=== PATIENT | female | born 1980 | race Caucasian/White ===

== ENCOUNTER 2024-09-28 13:41 | Emergency (ER) | payer MEDICAID, SELFPAY ==
[2024-09-28 13:43] VITALS: BMI 28.1
[2024-09-28 14:51] VITALS: BP 133/80; PULSE 88; RESP 16; TEMP 36.4; O2SAT 97
--- NOTE | 2024-09-28 15:05 | XR_ITS ---
Examination: CT abdomen and pelvis without contrast. Coronal 3-D reconstructions. Sagittal 2-D reconstructions. Date and time of exam:September 28, 2024 1621 hrs. Comparison: August 19, 2018 Indications: Left flank pain beginning 2 weeks ago, history kidney stones CTDI: vol (mGy): 15.1 DLP: (mGycm): 746 Technique: Axial images of the abdomen have been obtained, 3 mm slice thickness Intravenous contrast material has not been administered. Low dose protocols were performed. One or more of the following dose reduction techniques were used; automated exposure control, adjustment of the mA and/or KV according to patient size, use of iterative reconstruction technique. Findings: No focal liver or splenic lesions No gallstones No pancreatic or adrenal mass Moderate bilateral renal parenchymal scar formation Bilateral 1 mm renal calculi, no hydronephrosis or ureteral calculi Normal appendix No bowel obstruction or diverticulitis Anteverted uterus No adnexal mass No bladder mass or bladder calculi Mild osteopenia Impression: Tiny bilateral nonobstructing renal calculi, no hydronephrosis or ureteral calculi Moderate bilateral renal parenchymal scar formation Normal appendix No bladder mass or bladder calculi
--- NOTE | 2024-09-28 15:06 | PD.EDRME ---
Rapid Medical Screening Exam RME Arrival date/time: 09/28/24 13:41 44-year-old female presents emergency department complaint of left flank pain and dysuria. Chief Complaint: Back Pain/Injury Time Seen by Provider: 09/28/24 15:00 Vital signs: Vital Signs Temperature 97.6 F 09/28/24 14:51 Pulse Rate 88 09/28/24 14:51 Respiratory Rate 16 09/28/24 14:51 Blood Pressure 133/80 H 09/28/24 14:51 Pulse Oximetry (%) 97 09/28/24 14:51 Oxygen Delivery Method Room Air 09/28/24 14:51 Vital signs reviewed by provider: Yes
[2024-09-28 15:27] LABS: Collection Type, Urine Clean Catch
[2024-09-28 15:36] LABS: Basophils % (Auto) 0 % (0-2.5); Eosinophils # (Auto) 0.2 Thou/mm3 (0.0-0.5); Eosinophils % (Auto) 2 % (0-10); Hematocrit 37.7 % (36.0-46.0); Hemoglobin 12.6 g/dL (12.0-16.0); Immature Granulocytes % (Auto) 0 % (0-0); Immature Granulocytes Auto 0.02 Thou/mm3 (0.00-0.00); Lymphocytes # (Auto) 2.9 Thou/mm3 (1.0-4.8); Lymphocytes % (Auto) 34 % (10-50); Mean Corpuscular HGB Conc 33.4 g/dl (31.0-37.0); Mean Corpuscular Hemoglobin 31.7 pg (25.0-35.0); Mean Corpuscular Volume 95 fL (80-100); Monocytes # (Auto) 0.4 Thou/mm3 (0.0-0.8); Monocytes % (Auto) 4 % (0-12); Neutrophils % (Auto) 59 % (37-80); Nucleated Red Blood Cell % 0 /100 WBC (0); Platelet Count 289 Thou/mm3 (140-440); RDW Standard Deviation 44.2 fL (36.4-46.3); Red Blood Count 3.98 Miln/mm3 (4.00-5.20); White Blood Count 8.6 Thou/mm3 (3.6-11.0)
[2024-09-28 15:42] LABS: Bilirubin,Urine Negative (Negative); Blood,Urine Negative (Negative); Clarity,Urine Clear (Clear/Hazy); Color,Urine Yellow (Lt Yel-Yel); Culture Indicated,Urine Not Indicated; Glucose, Urine Negative (Negative); Ketones,Urine Negative (Negative); Leukocyte Esterase,Urine Negative (Negative); Nitrite,Urine Negative (Negative); Protein,Urine Trace (Neg - Trace); RBC,Urine 1 /hpf (0-3); Specific Gravity,Urine 1.022 (1.001-1.035); Squamous Epithelial Cell,Urine 7 /hpf (0-5); Urobilinogen,Urine Negative mg/dL (0.0-1.0); WBC,Urine 2 /hpf (0-5)
[2024-09-28] MEDS: KETOROLAC INJ 60 MG/2 ML VIAL 30 MG IM (15:50)
[2024-09-28 15:51] LABS: Alanine Aminotransferase 13 U/L (10-49); Albumin, Serum 4.9 gm/dL (3.5-5.0); Alkaline Phosphatase 115 U/L (46-116); Anion Gap 5 (7-16); Aspartate Amino Transferase 11 U/L (0-34); BUN/Creatinine Ratio 11 Ratio (12-20); Bilirubin,Total 0.2 mg/dL (0.3-1.2); Blood Urea Nitrogen 8 mg/dL (9-23); Calcium 9.7 mg/dL (8.3-10.6); Calcium (Corrected) 9.7 mg/dL (8.5-10.1); Carbon Dioxide 27.4 mMol/L (20.0-31.0); Chloride 107 mMol/L (98-107); Creatinine (Component) 0.7 mg/dL (0.6-1.3); Estimated Creatinine Clearance 115.1 mL/min (>60); Globulin 2.5 gm/dL (2.3-3.5); Glucose 95 mg/dL (74-106); Lipase 41 U/L (12-53); Osmolality,Calculated 275 (275-295); Potassium 3.9 mMol/L (3.4-5.1); Sodium 139 mMol/L (136-145); Total Protein 7.4 gm/dL (5.7-8.2); eGFR > 60 See Note
[2024-09-28 15:54] LABS: HCG,Qualitative Serum Negative
[2024-09-28 16:42] VITALS: BP 149/83; PULSE 90; RESP 18; TEMP 36.8; O2SAT 97
--- NOTE | 2024-09-28 19:57 | EDNOTE_ITS ---
ED Back Injury Pain RME/HPI General Chief Complaint: Back Pain/Injury Stated Complaint: LEFT BACK PAIN X3 WEEKS Time Seen by Provider: 09/28/24 15:00 Arrival date/time: 09/28/24 13:41 RME / HPI RME / HPI Narrative: 09/28/24 13:41 44-year-old female presents emergency department complaint of left flank pain and dysuria. ------ Dr. Mckeon?s Main ED Evaluation: 44yo female presents to the ED for a chief complaint of left flank pain x 3 weeks. Patient describes her pain as sharp and burning in nature, reporting it is intermittent. Patient reports associated abdominal pain. She denies any fever, chills, UTI symptoms, N/V or any other associated symptoms. Denies any history of similar symptoms. Patient states her pain has improved since receiving pain medication here in the ED. Patient states she has ibuprofen at home. Related Data Previous Rx's ?Medication ?Instructions ?Recorded levetiracetam 500 mg tablet 500 mg PO BID #60 tabs 06/21/23 (Keppra) cephalexin 500 mg capsule 500 mg PO TID #21 caps 08/21/23 prednisone 50 mg tablet 50 mg PO QDAY #5 tabs 12/24/23 Allergies Allergy/AdvReac Type Severity Reaction Status Date / Time latex Allergy Intermediate Rash Verified 09/28/24 13:42 buspirone [From BuSpar] Allergy Hives Verified 09/28/24 13:42 hydroxyzine [From Vistaril] Allergy Verified 09/28/24 13:42 walnut Allergy Swelling Verified 09/28/24 13:42 of Lip/Tongue/Throat Review of Systems Review of Systems Systems Reviewed: All systems reviewed, normal except as documented Narrative Review of Systems: Gen: No fever, no chills, no weight loss EYES: No discharge, no visual changes, no pain HEENT: No ear pain, no congestion, no sore throat PULM: No shortness of breath, no cough, no congestion CV: No chest pain, no dyspnea on exertion, no palpitations GI: No nausea, no vomiting, no diarrhea, + pain, no constipation : No frequency, no urgency, no dysuria Musc/skel: No joint pain, + back pain Skin: No rash. Warm and dry. Psyc: No hallucinations, no depression Heme/Lymph: No easy bleeding or bruising tendencies Neuro: No weakness, no headache Past Medical History Past Medical History CARDIAC: Negative Congestive Heart Failure RESPIRATORY: Negative Chronic Obstructive Pulmonary Disease (COPD) GENITOURINARY: Positive Kidney Stones; Negative Renal Disease ENDOCRINE: Negative Diabetes Mellitus Type 1 or Diabetes Mellitus Type 2 Social History SMOKING STATUS: Current every day smoker SUBSTANCE USE: does not use ED Exam Narrative Physical exam: GENERAL APPEARANCE: alert and oriented x 4, well-developed, well-nourished, no acute distress VITALS: All vitals were reviewed and the pulse ox is 97% on room air, which is normal according to my interpretation. HEENT: Normocephalic, atraumatic; pupils equal, round, reactive to light; EOMI; mucous membranes pink, moist; oropharynx clear NECK: Supple LUNGS: CTABL; no wheezes, no rales, no rhonchi HEART: Regular rate, regular rhythm; normal S1, S2; no murmurs ABDOMEN: non distended; normal BS; soft, no tenderness, no guarding, no rebound; no masses, no organomegaly, no hernia BACK: no CVA tenderness EXTREMITIES: atraumatic; no edema NEUROLOGIC: awake; alert and oriented x4; cranial nerves II-XII grossly intact; no focal sensory or motor deficits PSYCHIATRIC: appropriate mood and affect SKIN: warm, dry, normal color; no rashes Course Quality Measures none Orders Category Date Time Status CT abdomen pelvis wo con Stat Exams 09/28/24 15:05 Completed CBC Stat Lab 09/28/24 15:25 Completed CMP [Comprehensive Metabolic Panel] Stat Lab 09/28/24 15:25 Completed HCG,Qualitative Serum Stat Lab 09/28/24 15:25 Completed Lipase Stat Lab 09/28/24 15:25 Completed Urinalysis, C/S if Indicated Stat Lab 09/28/24 15:10 Completed Ketorolac Inj [Toradol Inj] Med 09/28/24 15:05 Discontinued 30 mg IM X1 ONE Vital Signs Vital signs: Vital Signs Temperature 97.6 F 09/28/24 14:51 Pulse Rate 88 09/28/24 14:51 Respiratory Rate 16 09/28/24 14:51 Blood Pressure 133/80 H 09/28/24 14:51 Pulse Oximetry (%) 97 09/28/24 14:51 Oxygen Delivery Method Room Air 12/28/24 14:51 Back Pain / Injury MDM Narrative MDM Narrative:: Scribe Attestation: 09/28/24 - Tarah Wilder am scribing for and in the presence of Dr. Mckeon. Patient data External records reviewed:: [facility] previous records (Per chart review, patient has no relevant previous ED visits.) Clinical information provided by:: patient Social determinants that could affect healthcare access:: none Patient has the following chronic illnesses:: none How is presenting disease/condition affected by chronic disease/condition?: no chronic disease Evaluation data The following diagnostics were reviewed and interpreted by me:: lab results and radiology exam(s) Lab and/or radiology exams considered but not ordered:: none Interpretation Summary: CBC is normal, CMP is normal, HCG is negative, UA is unremarkable, according to my interpretation. ---- [facility] Report Signed Patient: JOSH LLAMAS Record#: [id number] Birthdate: 1980 Age/Sex: 44 / F Location: [facility] Attending Dr: Ordering Physician: Lizzie KEITH)Miles Date of Service: 09/28/24 Procedure(s): CT abdomen pelvis wo con Accession Number(s): [id number] cc: Staci Ford; Georges Canada MD; Lizzie KEITH),Miles BOSS~ Examination: CT abdomen and pelvis without contrast. Coronal 3-D reconstructions. Sagittal 2-D reconstructions. Date and time of exam:September 28, 2024 1621 hrs. Comparison: August 19, 2018 Indications: Left flank pain beginning 2 weeks ago, history kidney stones CTDI: vol (mGy): 15.1 DLP: (mGycm): 746 Technique: Axial images of the abdomen have been obtained, 3 mm slice thickness Intravenous contrast material has not been administered. Low dose protocols were performed. One or more of the following dose reduction techniques were used; automated exposure control, adjustment of the mA and/or KV according to patient size, use of iterative reconstruction technique. Findings: No focal liver or splenic lesions No gallstones No pancreatic or adrenal mass Moderate bilateral renal parenchymal scar formation Bilateral 1 mm renal calculi, no hydronephrosis or ureteral calculi Normal appendix No bowel obstruction or diverticulitis Anteverted uterus No adnexal mass No bladder mass or bladder calculi Mild osteopenia Impression: Tiny bilateral nonobstructing renal calculi, no hydronephrosis or ureteral calculi Moderate bilateral renal parenchymal scar formation Normal appendix No bladder mass or bladder calculi Dictated By: Georges Canada MD Signed By: <Electronically signed by Georges Canada MD in OV> 09/28/24 1721 Medications / Prescriptions Medications or Prescriptions considered but not ordered:: none Medication administrations:: Medication Administration History Discontinued Medications Ketorolac Tromethamine (Ketorolac Inj 60 Mg/2 Ml Vial) 30 mg IM X1 ONE Stop: 09/28/24 15:06 Last Admin: 09/28/24 15:50 Dose: 30 mg Documented By: [facility] see above Consultations Consultation(s) initiated? (list below): No Diagnosis Differential diagnosis back pain/injury: renal colic, pyelonephritis and other (UTI, cystitis, musculoskeletal strain) Most likely diagnosis given after review of the tests above:: see below Admission Indicated Admission indicated?: not indicated Admission Request Was there a request for admission?: No Disposition Plan Disposition Plan: Discharge Discharge Attestation Discharge Attestation: The patient and all family members were given an opportunity to ask questions and understood the discharge instructions. Discharge instructions specifically effects, indications for sooner follow up or return to the emergency department, and the expected course of current diagnosis. Patient condition: Stable Discharge Plan Plan Patient Disposition: HOME (Self Care) Disposition Comment: Stable for discharge Patient condition on transfer: Stable Prescriptions/Referrals Prescriptions/Med Rec: No Action levetiracetam [Keppra] 500 mg tablet 500 mg PO BID Qty: 60 0RF prednisone 50 mg tablet 50 mg PO QDAY Qty: 5 0RF cephalexin 500 mg capsule 500 mg PO TID Qty: 21 0RF Referrals: Staci Ford PA-C [Primary Care Provider] - In 1 week Problem List Clinical Impression: Back pain Patient/Caregiver Discharge Instructions Discharge Activity: activity as tolerated Other Activity Instructions:: No lifting heavy objects, stooping or bending to pick things up. Education Materials: Back Safety: Bending, Back Safety: Lifting, Back Basics: A Healthy Spine, Back Exercises: Lower Back Rotation Additional Instructions: Please follow-up with your primary care doctor within the next several days. You should take Motrin 600 mg as well as 975 mg of acetaminophen and do this every 6 hours. You should do this for the next several days for pain. You should avoid carrying large objects, bending over to pick things up, stooping or bending. You should rest your back for the next several days. What ever it is that is causing the pain it can be seen on CT, blood work or urine tests. If you notice yourself worsening in any way please return to the ER right away and we will take care of you Print Language: Hungarian Stand Alone Forms: Whitney Award Info., Patient Portal Info Letter
== END 2024-09-28 20:25 | disposition home or self-care (01) ==
PROVIDERS: Emergency Provider Emergency Medicine; PCP Physician Assistant
DX: N20.0 Calculus of kidney (principal); F17.200 Nicotine dependence, unspecified, uncomplicated
CPT/HCPCS: 36415; 74176; 80053; 81001; 83690; 84703; 85025; 96372; 99284; J1885

== ENCOUNTER 2025-07-28 15:26 | Emergency (ER) | payer MEDICAID, SELFPAY ==
[2025-07-28 15:34] VITALS: BP 155/94; PULSE 77; RESP 18; TEMP 36.8; O2SAT 100
[2025-07-28 15:36] VITALS: BMI 29.0
--- NOTE | 2025-07-28 16:00 | XR_ITS ---
EXAMINATION: PA lateral chest 2 views TECHNIQUE: Upright PA lateral chest 2 views Date and time: July 28, 2025, 1521 hours INDICATIONS: Left-sided chest pain radiating to the left arm today. FINDINGS: Normal heart size Lungs are clear. The osseous tractors are intact IMPRESSION: No active disease
--- NOTE | 2025-07-28 16:00 | EKG_ITS ---
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
--- NOTE | 2025-07-28 16:00 | PD.EDRME ---
Rapid Medical Screening Exam E Arrival date/time: 07/28/25 15:26 44-year-old female with no known medical history presents to the emergency room with a chief complaint of left-sided sternal chest pain that radiates down her left arm causing numbness and tingling x 1 day I have greeted and performed a focused initial assessment of this patient. A comprehensive ED assessment and evaluation of the patient, analysis of all test results, and completion of the medical decision making process will be conducted by additional ED providers. Time Seen by Provider: 07/28/25 15:50 Vital signs: Vital Signs Temperature 98.3 F 07/28/25 15:34 Pulse Rate 77 07/28/25 15:34 Respiratory Rate 18 07/28/25 15:34 Blood Pressure 155/94 H 07/28/25 15:34 Pulse Oximetry (%) 100 07/28/25 15:34 Oxygen Delivery Method Room Air 07/28/25 15:34 Vital signs reviewed by provider: Yes Exam: Clear bilateral lung sounds Strong and regular rhythm, no gallops no murmurs no JVD GCS of 15 AO x 3 Clinical Impression: Costochondritis/chest pain/STEMI/NSTEMI
[2025-07-28 16:28] LABS: Collection Type, Urine Clean Catch
[2025-07-28 16:41] LABS: Amorphous Crystals,Urine Present (Absent); Amphetamine/Methamp Scrn,U Negative (Negative); Bacteria,Urine Rare; Barbiturate Screen,Urine Negative (Negative); Benzodiazepines Screen,Urine Negative (Negative); Benzoylecgonine Screen, Ur Negative (Negative); Bilirubin,Urine Negative (Negative); Blood,Urine 3+ (Negative); Clarity,Urine Clear (Clear/Hazy); Color,Urine Colorless (Lt Yel-Yel); Culture Indicated,Urine Not Indicated; Fentanyl Screen,Urine Negative (Negative); Glucose, Urine Negative (Negative); Ketones,Urine Negative (Negative); Leukocyte Esterase,Urine Negative (Negative); Nitrite,Urine Negative (Negative); Opiate Screen,Urine Negative (Negative); PH,Urine 6.5 (5.0-7.0); Protein,Urine Negative (Neg - Trace); RBC,Urine 7 /hpf (0-3); Specific Gravity,Urine 1.004 (1.001-1.035); Squamous Epithelial Cell,Urine 8 /hpf (0-5); THC Screen,Urine Negative (Negative); Urobilinogen,Urine Negative mg/dL (0.0-1.0); WBC,Urine 3 /hpf (0-5)
[2025-07-28 16:43] LABS: Basophils # (Auto) 0.0 Thou/mm3 (0.0-0.2); Basophils % (Auto) 0 % (0-2.5); Eosinophils # (Auto) 0.2 Thou/mm3 (0.0-0.5); Eosinophils % (Auto) 2 % (0-10); Hematocrit 36.6 % (36.0-46.0); Hemoglobin 12.1 g/dL (12.0-16.0); Immature Granulocytes Auto 0.03 Thou/mm3 (0.00-0.00); Lymphocytes # (Auto) 3.3 Thou/mm3 (1.0-4.8); Lymphocytes % (Auto) 35 % (10-50); Mean Corpuscular HGB Conc 33.1 g/dl (31.0-37.0); Mean Corpuscular Hemoglobin 30.7 pg (25.0-35.0); Mean Corpuscular Volume 93 fL (80-100); Monocytes # (Auto) 0.4 Thou/mm3 (0.0-0.8); Monocytes % (Auto) 4 % (0-12); Neutrophils # (Auto) 5.5 Thou/mm3 (1.8-7.7); Neutrophils % (Auto) 59 % (37-80); Nucleated Red Blood Cell # 0.00 Thou/mm3 (0.00-0.00); Nucleated Red Blood Cell % 0 /100 WBC (0); Platelet Count 267 Thou/mm3 (140-440); RDW Standard Deviation 43.8 fL (36.4-46.3); Red Blood Count 3.94 Miln/mm3 (4.00-5.20); White Blood Count 9.4 Thou/mm3 (3.6-11.0)
[2025-07-28 17:16] LABS: B-Type Natriuretic Peptide 35 pg/mL (0-100)
[2025-07-28 17:17] LABS: Alanine Aminotransferase 11 U/L (10-49); Albumin, Serum 4.8 gm/dL (3.5-5.0); Albumin/Globulin Ratio 2.2 (1.2-2.2); Alkaline Phosphatase 113 U/L (46-116); Anion Gap 8 (7-16); Aspartate Amino Transferase 17 U/L (0-34); BUN/Creatinine Ratio 9 Ratio (12-20); Bilirubin,Total 0.3 mg/dL (0.3-1.2); Blood Urea Nitrogen 6 mg/dL (9-23); Calcium 9.4 mg/dL (8.3-10.6); Calcium (Corrected) 9.4 mg/dL (8.5-10.1); Carbon Dioxide 25.1 mMol/L (20.0-31.0); Chloride 109 mMol/L (98-107); Creatinine (Component) 0.7 mg/dL (0.6-1.3); Estimated Creatinine Clearance 116.6 mL/min (>60); Globulin 2.2 gm/dL (2.3-3.5); Glucose 95 mg/dL (74-106); Magnesium 1.6 mg/dL (1.6-2.6); Osmolality,Calculated 280 (275-295); Potassium 4.0 mMol/L (3.4-5.1); Sodium 142 mMol/L (136-145); Total Protein 7.0 gm/dL (5.7-8.2); Troponin I < 0.002 ng/mL (0.0-0.045); eGFR > 60 See Note
[2025-07-28 17:19] LABS: INR 0.9 (0.9-1.3); Partial Thromboplastin Time 28.9 Seconds (22.0-36.0); Prothrombin Time 9.9 Seconds (9.0-12.2)
[2025-07-28 20:26] VITALS: BP 151/81; PULSE 75; RESP 15; TEMP 36.7; O2SAT 100
--- NOTE | 2025-07-28 20:30 | EDNOTE_ITS ---
ED General RME/HPI General Stated complaint: NUMBNESS Time Seen by Provider: 07/28/25 15:50 Arrival date/time: 07/28/25 15:26 CC: Numbness in the left side of the face and the left arm abrupt onset approximately 2 hours prior to arrival, denies any chest pain shortness of breath no prior history of similar events also complaining of numbness and tingling intermittently in both feet, but not in the legs. Patient denies fever chills chest pain shortness of breath or difficulty breathing. RME / HPI RME / HPI narrative: 07/28/25 15:26 44-year-old female with no known medical history presents to the emergency room with a chief complaint of left-sided sternal chest pain that radiates down her left arm causing numbness and tingling x 1 day I have greeted and performed a focused initial assessment of this patient. A comprehensive ED assessment and evaluation of the patient, analysis of all test results, and completion of the medical decision making process will be conducted by additional ED providers. Exam: Clear bilateral lung sounds Strong and regular rhythm, no gallops no murmurs no JVD GCS of 15 AO x 3 Impression: Costochondritis/chest pain/STEMI/NSTEMI Related Data Previous Rx's ?Medication ?Instructions ?Recorded levetiracetam 500 mg tablet 500 mg PO BID #60 tabs (Keppra) cephalexin 500 mg capsule 500 mg PO TID #21 caps 08/21 prednisone 50 mg tablet 50 mg PO QDAY #5 tabs Allergies Allergy/AdvReac Type Severity Reaction Status Date / Time almond Allergy Severe Swelling Verified 07/28/25 15:56 of Lip/Tongue/Throat buspirone (From BuSpar) Allergy Severe Hives Verified 07/28/25 15:56 cashew nut Allergy Severe Swelling Verified 07/28/25 15:56 of Lip/Tongue/Throat hydroxyzine (From Vistaril) Allergy Severe Swelling Verified 07/28/25 15:56 of Lip/Tongue/Throat latex Allergy Severe Rash Verified 07/28/25 15:56 pecan nut Allergy Severe Swelling Verified 07/28/25 15:56 of Lip/Tongue/Throat pistachio nut Allergy Severe Swelling Verified 07/28/25 15:56 of Lip/Tongue/Throat walnut Allergy Severe Swelling Verified 07/28/25 15:56 of Lip/Tongue/Throat Review of Systems Review of Systems Narrative Review of Systems: GEN: No fever, no chills, no weight loss EYES: No discharge, no visual changes, no pain HEENT: No ear pain, no congestion, no sore throat PULM: No shortness of breath, no cough, no congestion CV: No chest pain, no dyspnea on exertion, no palpitations GI: No nausea, no vomiting, no diarrhea, no pain, no constipation : No frequency, no urgency, no dysuria MUSC/SKEL: No joint pain, no back pain SKIN: No rash PSYCH: No hallucinations, no depression HEME/LYMPH: No easy bleeding or bruising tendencies NEURO: No weakness, no headache Past Medical History Past Medical History CARDIAC: Negative Congestive Heart Failure RESPIRATORY: Negative Chronic Obstructive Pulmonary Disease (COPD) GENITOURINARY: Positive Kidney Stones; Negative Renal Disease ENDOCRINE: Negative Diabetes Mellitus Type 1 or Diabetes Mellitus Type 2 Social History SMOKING STATUS: Never smoker SUBSTANCE USE: does not use ED Exam Narrative Physical exam: [General: Not in any acute distress Head normocephalic HEENT: Within acceptable limits Neck is supple nontender Chest equal chest rise nontender to palpation Respiratory: Clear to auscultation no wheezes crackles or rubs CV: Rate rhythm is regular no murmurs rubs or clicks Abdomen is distended secondary to body habitus soft nontender no masses positive bowel sounds all 4 quadrants Back: No CVA tenderness no spinous process tenderness from cervical spine thoracic and lumbar spine Skin: Intact no petechiae rash induration ulceration or crepitus Extremities: Moving all extremity against resistance cap refill less than 2 seconds neurosensory intact. Patient observed ambulating moving extremities without complication neurosensory intact Neuro: Awake alert oriented x3 Glascow coma 15 no focal deficits] Course Course Course Narrative: Patient's numbness has resolved from her face upon reassessment at 2034, the patient is able to ambulate without any complications no acute findings in her laboratory results or imaging at this time and comfortable discharging the patient home with hyperesthesia. Quality Measures none Orders Category Date Time Status EKG (ED ONLY) *Do not use* NOW Care 07/28/25 16:00 Completed EKG (ED Only) Stat Exams 07/28/25 16:00 Draft XR chest 2V Stat Exams 07/28/25 16:00 Completed B-Type Natriuretic Peptide Stat Lab 07/28/25 16:25 Completed CBC Stat Lab 07/28/25 16:25 Completed Comprehensive Metabolic Panel Stat Lab 07/28/25 16:25 Completed Drug Screen,Urine Stat Lab 07/28/25 16:09 Completed Magnesium Stat Lab 07/28/25 16:25 Completed Partial Thromboplastin Time Stat Lab 07/28/25 16:25 Completed Prothrombin Time with INR Stat Lab 07/28/25 16:25 Completed Troponin I Stat Lab 07/28/25 16:25 Completed Urinalysis, C/S if Indicated Stat Lab 07/28/25 16:09 Completed Vital Signs Vital signs: Vital Signs Temperature 98.3 F 07/28/25 15:34 Pulse Rate 77 07/28/25 15:34 Respiratory Rate 18 07/28/25 15:34 Blood Pressure 155/94 H 07/28/25 15:34 Pulse Oximetry (%) 100 07/28/25 15:34 Oxygen Delivery Method Room Air 07/28/25 15:34 Discharge Plan Plan Patient Disposition: HOME (Self Care) Patient condition on transfer: Stable Prescriptions/Referrals Prescriptions/Med Rec: No Action levetiracetam [Keppra] 500 mg tablet 500 mg PO BID Qty: 60 0RF prednisone 50 mg tablet 50 mg PO QDAY Qty: 5 0RF cephalexin 500 mg capsule 500 mg PO TID Qty: 21 0RF Referrals: Staci Ford PA-C [Primary Care Provider] - In 1 week Problem List Clinical Impression: Paresthesia Patient/Caregiver Discharge Instructions Other Activity Instructions:: Follow-up with your primary care doctor in the next day or so if there is any worsening of symptoms return the emergency room for reevaluation. Education Materials: ED Paraesthesias Print Language: Nepali Stand Alone Forms: Whitney Award Info., Work/School Release, Patient Portal Info Letter HANNA/KARYN Supervising Physician SYLVIA Supervising Physician: Aman Blum ENP [facility] Clinical Information Provided by: patient Medical Records reviewed [facility] Meds/Rx considered, not ordered None Labs/Rad/Tests considered, not ordered None Chronic Illness/Social Conditions which may negatively complicate care or outcome(s)-explain: None or not a pplicable EKG EKG not done Labs Labs: interpreted by tx Lab(s) Interpretation(s): CBC shows no acute leukocytosis anemia thrombocytopenia CMP shows no acute electrolyte imbalances renal impairment transaminitis or T. bili elevation Coags within acceptable limits Troponin and BNP is negative Urine shows 3+ blood and crystals but no indication of infection UDS is negative Imaging Imaging interpretation: interpreted by me Imaging Interpretation(s): Chest x-ray is negative
== END 2025-07-28 20:42 | disposition home or self-care (01) ==
PROVIDERS: Nurse Practitioner Family; Emergency Provider Emergency Medicine; PCP Physician Assistant; Referring Provider Family Medicine
DX: M94.0 Chondrocostal junction syndrome [Tietze] (principal)
CPT/HCPCS: 36415; 71046; 80053; 80307; 81001; 83735; 83880; 84484; 85025; 85610; 85730; 93005; 99283